=== PATIENT | female | born 1965 | race Two or more races ===

== ENCOUNTER 2022-07-03 16:03 | Emergency (ER) | payer SELFPAY ==
[2022-07-03] MEDS ORDERED: ONDANSETRON ODT 4 MG TABLET TL STA (16:32)
[2022-07-03] MEDS ORDERED: HYDROmorphone 1 MG/ML CARPUJECT IM STA (16:32)
--- NOTE | 2022-07-03 16:39 | ED Physician Documentation ---
PD HPI BACK PAIN - Stated complaint Stated Complaint: LOWER BACK PAIN - Chief complaint Chief Complaint: Back Pain - History obtained from History obtained from: Patient, Family - History of Present Illness Timing - onset: How many months ago (1) Timing - duration: Months (1) Timing - details: Gradual onset, Still present Location: Lower, Right Quality: Pain, Spasm, Sharp, Similar to prior episodes Associated symptoms: No: Fever, Weakness, Numbness, Incontinent of urine, Unable to urinate, Hematuria, Incontinent of stool Improves with: Rest, Position, Meds Worsened by: Movement Contributing factors: Other (fell one year ago) Similar symptoms before: Diagnosis (sciatica) Recently seen: Not recently seen - Additional information Additional information: 57-year-old female fell 1 year ago and injured her lower back. She was seen by physician in [place] and she did have plain films done without findings. She has been treated for sciatica. She has been treating this with an injectable dexamethasone Celexa Nguyen and Toradol as well as Lyrica. She brings her medications she has with her from [place]. She is here today as she has lost control of her pain and her medications she has been using are no longer effective. She is begging for some relief. She has been told that she will need MRI for further work-up and treatment. Review of Systems Constitutional: denies: Fever Eyes: denies: Decreased vision Ears: denies: Ear pain Nose: denies: Congestion Throat: denies: Sore throat Cardiac: denies: Chest pain / pressure, Palpitations Respiratory: denies: Dyspnea, Cough GI: denies: Abdominal Pain, Nausea, Vomiting, Constipation, Diarrhea : denies: Dysuria, Frequency Skin: denies: Rash Musculoskeletal: reports: Back pain, Extremity pain. denies: Neck pain Neurologic: denies: Generalized weakness, Focal weakness, Numbness PD PAST MEDICAL HISTORY - Present Medications Home Medications: Ambulatory Orders Medication Instructions Recorded Confirmed Celecoxib [Celebrex] 200 mg PO DAILY 07/03/22 07/03/22 Cyclobenzaprine [Flexeril] 10 mg PO TID PRN #20 tablet 07/03/22 HYDROcod/ACETAM 5/325 [[place] 5/325] 1 - 2 tablet PO Q6H PRN #14 tablet 07/03/22 Pregabalin [Lyrica] 50 mg PO ONCE 07/03/22 07/03/22 - Allergies Allergies/Adverse Reactions: Allergies Allergy/AdvReac Type Severity Reaction Status Date / Time No Known Drug Allergies Allergy Verified 07/03/22 16:18 PD ED PE NORMAL - Vitals Vital signs reviewed: Yes (hypertensive ) - General General: Alert and oriented X 3, Well developed/nourished - HEENT HEENT: Atraumatic, PERRL, EOMI - Neck Neck: Supple, no meningeal sign, No bony TTP - Respiratory Respiratory: No respiratory distress - Back Back: No CVA TTP, No spinal TTP, Other (mild right paraspinous muscle tenderness) - Derm Derm: Normal color, Warm and dry, No rash - Extremities Extremities: No deformity, No edema - Neuro Neuro: Alert and oriented X 3, 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, No motor deficit, No sensory deficit, Normal speech Eye Opening: Spontaneous Motor: Obeys Commands Verbal: Oriented GCS Score: 15 - Psych Psych: Normal mood, Normal affect Results - Vitals Vitals: Vital Signs - 24 hr 07/03/22 07/03/22 16:12 18:13 Temperature 36.2 C L Heart Rate 88 75 Respiratory 16 16 Rate Blood Pressure 132/77 H 125/76 O2 Saturation 99 96 Oxygen O2 Source Room air PD MEDICAL DECISION MAKING - ED course Complexity details: re-evaluated patient, considered differential, d/w patient, d/w family ED course: This 57-year-old female has a history of sciatica she has been treating this for more than a month she has had some luck with the use of dexamethasone and Celexa as well as Lyrica. She now feels her medications are completely i neffective and she has lost control of her pain. Here in the emergency department she is administered a milligram of Dilaudid IM and Zofran. She has marked improvement in her pain. She has now failed conservative measures with nonsteroidal and we will provide some temporary pain relief for the patient. I have indicated the patient that she should invest her time in physical therapy as this is the modality will likely give her the most lasting relief. I have offered to give the patient a referral to a primary care doctor. Departure - Departure Disposition: 01 Home, Self Care Clinical Impression: Sciatica Qualifiers: Laterality: right Qualified Code(s): M54.31 - Sciatica, right side Condition: Stable Instructions: ED Sciatica Follow-Up: Emily Moon ARNP [Provider Admit Priv/Credential] - Prescriptions: Cyclobenzaprine [Flexeril] 10 mg PO TID PRN #20 tablet PRN Reason: Spasms HYDROcod/ACETAM 5/325 [[place] 5/325] 1 - 2 tablet PO Q6H PRN #14 tablet PRN Reason: Pain Comments: Shazia, Today it looks like you have lost control of your pain. When this happens we provide a small amount of a strong narcotic pain reliever and I have escribed medications to the [facility] in [place]. The expectation is that you will have improvement in your pain and once the pain is controlled it is easier to continue to control it and you may be able to get good relief with the medications you already have. The narcotic will make you constipated and you cannot drive while you are taking either of these medications. The narcotic can be habit forming and we only provide this in small amounts. The muscle relaxant will make you tired and not move around as much and I recommend you take it at night. Physical therapy with stretching and core muscle building will eventually give you lasting improvement. Seek care with the primary care doctor recommended for initiation of physical therapy. Discharge Date/Time: 07/03/22 18:14
[2022-07-03 18:14] VITALS: BP 125/76
== END 2022-07-03 18:14 | disposition home or self-care (01) ==
LOC: ED 16:03
DX: M54.31 Sciatica, right side (principal)
CPT/HCPCS: 96372; 99283; 99284; J1170; Q0162

== ENCOUNTER 2022-07-06 14:56 | Outpatient (CLI) | payer SELFPAY | END 2022-07-06 14:57 | disposition critical access hospital (66) | LOC: EMS 14:56 | DX: T40.2X2A Poisoning by other opioids, intentional self-harm, initial encounter (principal); T42.6X2A Poisoning by other antiepileptic and sedative-hypnotic drugs, intentional self-harm, initial encounter; T48.1X2A Poisoning by skeletal muscle relaxants [neuromuscular blocking agents], intentional self-harm, initial encounter; R41.82 Altered mental status, unspecified | CPT/HCPCS: A0425; A0427 ==

== ENCOUNTER 2022-07-06 15:41 | Observation (INO) | payer SELFPAY ==
[2022-07-06] MEDS ORDERED: SODIUM CHLORIDE 0.9% 1,000 ML IV STA (15:49)
--- NOTE | 2022-07-06 15:51 | ED Physician Documentation ---
PD HPI OVERDOSE - Stated complaint Stated Complaint: OD - History obtained from History obtained from: Patient, EMS - Additional information Additional information: 67-year-old woman brought in by ambulance for polydrug overdose. Between 6 and 8 AM she took reportedly a total of 20 x 10 mg Flexeril, 28 x 50 mg Lyrica and 14 x 5 mg hydrocodone's. This was in a suicide attempt because she owes money. History is limited because she is somnolent. She was found on the ground, there was a possible fall but EMS thinks if she did follow-up was probably only a few inches. She is in a c-collar. Review of Systems Unable to obtain: Confused PD PAST MEDICAL HISTORY - Past Medical History Musculoskeletal: Chronic back pain - Present Medications Home Medications: Ambulatory Orders Medication Instructions Recorded Confirmed Celecoxib [Celebrex] 200 mg PO DAILY 07/03/22 07/03/22 Cyclobenzaprine [Flexeril] 10 mg PO TID PRN #20 tablet 07/03/22 HYDROcod/ACETAM 5/325 [[place] 5/325] 1 - 2 tablet PO Q6H PRN #14 tablet 07/03/22 Pregabalin [Lyrica] 50 mg PO ONCE 07/03/22 07/03/22 - Allergies Allergies/Adverse Reactions: Allergies Allergy/AdvReac Type Severity Reaction Status Date / Time No Known Drug Allergies Allergy Verified 07/03/22 16:18 - Social History Does the pt smoke?: No Smoking Status: Never smoker Does the pt have substance abuse?: No - Immunizations Immunizations are current?: Yes - POLST Patient has POLST: No PD ED PE NORMAL - Vitals Vital signs reviewed: Yes - General General: Other (She is somnolent but awakens to voice, she can answer simple questions and follow simple commands.) - HEENT HEENT: Other ([place] sluggish pupils; Dry mucous membranes) - Neck Neck: No bony TTP, Other (Maintained in a c-collar pending imaging given potential trauma) - Cardiac Cardiac: Other (Tachycardic and regular without murmur) - Respiratory Respiratory: No respiratory distress, Clear bilaterally - Abdomen Abdomen: Normal bowel sounds, Soft, Non tender - Back Back: No CVA TTP, No spinal TTP - Derm Derm: Normal color, Warm and dry, Other (Very dry skin) - Neuro Eye Opening: To Voice Motor: Obeys Commands Verbal: Confused GCS Score: 13 Results - Vitals Vitals: Vital Signs - 24 hr 07/06/22 07/06/22 07/06/22 15:48 16:24 16:30 Temperature 37.2 C Heart Rate 114 H 125 H Respiratory 19 20 Rate Blood Pressure 117/72 154/96 H O2 Saturation 100 100 100 07/06/22 07/06/22 17:00 17:30 Temperature Heart Rate 126 H 125 H Respiratory 20 16 Rate Blood Pressure 140/120 H 105/82 H O2 Saturation 100 99 Oxygen O2 Source Room air - EKG (time done) 1610 Rate: Rate (enter#) (115) Rhythm: Sinus tachycardia, RICARDO [place]: LAD Intervals: Normal SC. No: Prolonged QT QRS: Normal Ischemia: Normal ST segments - Labs Labs: Laboratory Tests 07/06/22 07/06/22 07/06/22 15:51 16:00 16:04 WBC 15.4 H RBC 4.57 Hgb 14.1 Hct 42.7 MCV 93.4 MCH 30.9 MCHC 33.0 RDW 12.0 Plt Count 205 MPV 11.2 H Neut # (Auto) 13.9 H Lymph # (Auto) 0.6 L Tama # (Auto) 0.8 Eos # (Auto) 0.0 Baso # (Auto) 0.0 Absolute Nucleated RBC 0.00 Nucleated RBC % 0.0 Sodium Potassium Chloride Carbon Dioxide Anion Gap BUN Creatinine Estimated GFR (MDRD) Glucose Calcium Total Bilirubin AST ALT Alkaline Phosphatase Total Protein Albumin Globulin Albumin/Globulin Ratio Lipase TSH Free T4 Free T3 pg/mL Urine Color YELLOW Urine Clarity CLEAR Urine pH 5.5 Ur Specific Weir 1.020 Urine Protein NEGATIVE Urine Glucose (UA) NEGATIVE Urine Ketones 15 H Urine Occult Blood NEGATIVE Urine Nitrite NEGATIVE Urine Bilirubin NEGATIVE Urine Urobilinogen 0.2 (NORMAL) Ur Leukocyte Esterase NEGATIVE Ur Microscopic Review NOT INDICATED Urine Culture Comments NOT INDICATED Nasal Adenovirus (PCR) NOT DETECTED Nasal B. parapertussis DNA (PCR) NOT DETECTED Nasal Coronavir 229E PCR NOT DETECTED Nasal Coronavir HKU1 PCR NOT DETECTED Nasal Coronavir NL63 PCR NOT DETECTED Nasal Coronavir OC43 PCR NOT DETECTED Nasal Enterovir/Rhinovir PCR NOT DETECTED Nasal Influenza B PCR NOT DETECTED Nasal Influenza A PCR NOT DETECTED Nasal Parainfluen 1 PCR NOT DETECTED Nasal Parainfluen 2 PCR NOT DETECTED Nasal Parainfluen 3 PCR NOT DETECTED Nasal Parainfluen 4 PCR NOT DETECTED Nasal RSV (PCR) NOT DETECTED Nasal B.pertussis DNA PCR NOT DETECTED Nasal C.pneumoniae (PCR) NOT DETECTED Emigdio Human Metapneumo PCR NOT DETECTED Nasal M.pneumoniae (PCR) NOT DETECTED Nasal SARS-CoV-2 (PCR) NOT DETECTED Salicylates Urine Opiates Screen POSITIVE H Ur Oxycodone Screen NEGATIVE Urine Methadone Screen NEGATIVE Ur Propoxyphene Screen NEGATIVE Acetaminophen Ur Barbiturates Screen NEGATIVE Ur Tricyclics Screen POSITIVE H Ur Phencyclidine Scrn NEGATIVE Ur Amphetamine Screen NEGATIVE U Methamphetamines Scrn NEGATIVE U Benzodiazepines Scrn NEGATIVE Urine Cocaine Screen NEGATIVE U Cannabinoids Screen NEGATIVE Ethyl Alcohol 07/06/22 07/06/22 07/06/22 16:04 16:04 16:04 WBC RBC Hgb Hct MCV MCH MCHC RDW Plt Count MPV Neut # (Auto) Lymph # (Auto) Tama # (Auto) Eos # (Auto) Baso # (Auto) Absolute Nucleated RBC Nucleated RBC % Sodium 138 Potassium 4.1 Chloride 101 Carbon Dioxide 24 Anion Gap 13.0 BUN 19 Creatinine 0.8 Estimated GFR (MDRD) 74 L Glucose 86 Calcium 9.7 Total Bilirubin 1.0 AST 74 H ALT 31 Alkaline Phosphatase 80 Total Protein 7.8 Albumin 4.3 Globulin 3.5 Albumin/Globulin Ratio 1.2 Lipase 45 TSH < 0.08 L Free T4 1.77 H Free T3 pg/mL 3.58 Urine Color Urine Clarity Urine pH Ur Specific Weir Urine Protein Urine Glucose (UA) Urine Ketones Urine Occult Blood Urine Nitrite Urine Bilirubin Urine Urobilinogen Ur Leukocyte Esterase Ur Microscopic Review Urine Culture Comments Nasal Adenovirus (PCR) Nasal B. parapertussis DNA (PCR) Nasal Coronavir 229E PCR Nasal Coronavir HKU1 PCR Nasal Coronavir NL63 PCR Nasal Coronavir OC43 PCR Nasal Enterovir/Rhinovir PCR Nasal Influenza B PCR Nasal Influenza A PCR Nasal Parainfluen 1 PCR Nasal Parainfluen 2 PCR Nasal Parainfluen 3 PCR Nasal Parainfluen 4 PCR Nasal RSV (PCR) Nasal B.pertussis DNA PCR Nasal C.pneumoniae (PCR) Emigdio Human Metapneumo PCR Nasal M.pneumoniae (PCR) Nasal SARS-CoV-2 (PCR) Salicylates < 6.0 Urine Opiates Screen Ur Oxycodone Screen Urine Methadone Screen Ur Propoxyphene Screen Acetaminophen < 10 L Ur Barbiturates Screen Ur Tricyclics Screen Ur Phencyclidine Scrn Ur Amphetamine Screen U Methamphetamines Scrn U Benzodiazepines Scrn Urine Cocaine Screen U Cannabinoids Screen Ethyl Alcohol < 5.0 - Rads (name of study) CT of the head and cervical spine were negative. C-collar removed at 5:50 PM. Radiology: EMP read contemporaneously PD MEDICAL DECISION MAKING - ED course ED course: 57-year-old woman presents after a polydrug overdose, this included Tylenol, hydrocodone, Flexeril, and Lyrica. She presents somnolent, tachycardic, in a c- collar given potential trauma albeit per the above the trauma would have been mild. Poison control recommends treatment with N-acetylcysteine given the elevation in her AST despite a negative serum Tylenol level and this is started and I spoke with Dr. Brownlee for obs in the ICU at approximately 5:30 PM. - Critical Care Time(min): 35 Time Includes: Direct patient care, Review records, Reassess patient, Document care, Coordinate care, Medical consult, Family consult for tx dec (Daughter at bedside at times and updated with progress and plan.) Data interpretation: Labs, Pulse ox Procedures included in critical care time: Peripheral IV Procedures excluded from critical care time: EKG Departure - Departure Disposition: ED Place in Observation Clinical Impression: Drug overdose, Elevated LFTs, Delirium Condition: Serious
[2022-07-06 15:58] LABS: MUDS CUTOFF CONCENTRATIONS CUTOFF CONC BELOW:
[2022-07-06 16:00] LABS: BILIRUBIN,URINE NEGATIVE (NEGATIVE); GLUCOSE, URINE (UA) NEGATIVE (NEGATIVE); KETONES,URINE (UA) 15 mg/dL (NEGATIVE); LEUKOCYTE ESTERASE, URINE NEGATIVE (NEGATIVE); NITRITE,URINE NEGATIVE (NEGATIVE); OCCULT BLOOD,URINE NEGATIVE (NEGATIVE); PH,URINE 5.5 PH (5.0-7.5); PROTEIN,URINE NEGATIVE (NEGATIVE); UROBILINOGEN,URINE 0.2 (NORMAL) E.U./dL (NORMAL)
[2022-07-06 16:02] LABS: CLARITY,URINE CLEAR (CLEAR)
[2022-07-06 16:07] LABS: BASOPHILS % (AUTO) 0.1 %; HCT - HEMATOCRIT 42.7 % (37.0-47.0); HGB - HEMOGLOBIN 14.1 g/dL (12.0-16.0); LYMPHOCYTES # (AUTO) 0.6 10^3/uL (1.5-3.5); LYMPHOCYTES % (AUTO) 3.6 %; MEAN CORPUSCULAR HEMOGLOBIN 30.9 pg (27.0-31.0); MEAN CORPUSCULAR VOLUME 93.4 fL (81.0-99.0); MEAN PLATELET VOLUME 11.2 fL (7.9-10.8); MONOCYTES # (AUTO) 0.8 10^3/uL (0.0-1.0); MONOCYTES % (AUTO) 5.3 %; NEUTROPHILS # (AUTO) 13.9 10^3/uL (1.5-6.6); NEUTROPHILS % (AUTO) 90.7 %; PLT - PLATELET COUNT 205 10^3/uL (130-450); RED BLOOD COUNT 4.57 10^6/uL (4.20-5.40); WHITE BLOOD COUNT 15.4 x10^3/uL (4.8-10.8)
[2022-07-06 16:14] LABS: AMPHETAMINE SCREEN,URINE NEGATIVE (NEGATIVE); BARBITURATE SCREEN,UR NEGATIVE (NEGATIVE); BENZODIAZEPINES SCREEN, URINE NEGATIVE (NEGATIVE); COCAINE SCREEN URINE NEGATIVE (NEGATIVE); METHADONE SCREEN, URINE NEGATIVE (NEGATIVE); METHAMPHETAMINES SCREEN, URINE NEGATIVE (NEGATIVE); OPIATE SCREEN, URINE POSITIVE (NEGATIVE); OXYCODONE SCREEN, URINE NEGATIVE (NEGATIVE); PROPOXYPHENE SCREEN, URINE NEGATIVE (NEGATIVE); THC CANNABINOID SCREEN, URINE NEGATIVE (NEGATIVE); TRICYCLIC ANTIDEPRESSANT,URINE POSITIVE (NEGATIVE)
[2022-07-06 16:22] LABS: ACETAMINOPHEN < 10 ug/mL (10-30); ALBUMIN 4.3 g/dL (3.2-5.5); ALBUMIN/GLOBULIN RATIO 1.2 (1.0-2.2); ALKALINE PHOSPHATASE 80 IU/L (42-121); ALT ALANINE AMINOTRANSFERASE 31 IU/L (10-60); AST ASPARTATE AMINOTRANSFERASE 74 IU/L (10-42); BUN - BLOOD UREA NITROGEN 19 mg/dL (6-20); CALCIUM 9.7 mg/dL (8.5-10.3); CARBON DIOXIDE - CO2 24 mmol/L (21-32); CHLORIDE 101 mmol/L (101-111); CREATININE 0.8 mg/dL (0.4-1.0); ETOH - ETHANOL < 5.0 mg/dL; GFR - MDRD 74 (>89); GLUCOSE 86 mg/dL (70-100); LIPASE 45 U/L (22-51); POTASSIUM 4.1 mmol/L (3.5-5.0); SALICYLATE < 6.0 mg/dL; SODIUM 138 mmol/L (135-145); TOTAL PROTEIN 7.8 g/dL (6.7-8.2)
[2022-07-06 17:23] LABS: B. PARAPERTUSSIS- RESP PCR PAN NOT DETECTED; B. PERTUSSIS- RESP PCR PANEL NOT DETECTED; C. PNEUMONIAE- RESP PCR PANEL NOT DETECTED; CORONAVIRUS 229E-RESP PCR NOT DETECTED; CORONAVIRUS HKU1-RESP PCR NOT DETECTED; CORONAVIRUS NL63-RESP PCR NOT DETECTED; CORONAVIRUS OC43-RESP PCR NOT DETECTED; HUMAN METAPNEUMOVIRUS NOT DETECTED; INFLUENZA A- RESP PCR PANEL NOT DETECTED; INFLUENZA B - RESP PCR PANEL NOT DETECTED; M. PNEUMONIAE- RESP PCR PANEL NOT DETECTED; PARAINFLUENZA VIRUS 1 NOT DETECTED; PARAINFLUENZA VIRUS 2 NOT DETECTED; PARAINFLUENZA VIRUS 3 NOT DETECTED; PARAINFLUENZA VIRUS 4 NOT DETECTED; RHINOVIRUS/ENTEROVIRUS NOT DETECTED; RSV- RESP PCR PANEL NOT DETECTED; SARS-CoV-2 -RESP PCR PANEL NOT DETECTED
[2022-07-06] MEDS ORDERED: ACETYLCYSTEINE 5,000 MG in DEXTROSE 5% 1,000 ML IV ONE (17:25)
[2022-07-06] MEDS ORDERED: ACETYLCYSTEINE IV ONE (17:25)
[2022-07-06] MEDS ORDERED: DEXTROSE 5% IV ONE (17:25)
[2022-07-06] MEDS ORDERED: DEXTROSE 5% IV STA (17:25)
[2022-07-06] MEDS ORDERED: ACETYLCYSTEINE IV STA (17:25)
--- NOTE | 2022-07-06 17:40 | CT Report ---
PROCEDURE: HEAD WO INDICATIONS: poss head inj, ams TECHNIQUE: Noncontrast 4.5 mm thick angled axial sections acquired from the foramen magnum to the vertex. For r adiation dose reduction, the following was used: automated exposure control, adjustment of mA and/or kV according to patient size. COMPARISON: None. FINDINGS: Image quality: Decreased due to unavoidable patient motion.. CSF spaces: Basal cisterns are patent. No extra-axial fluid collections. Ventricles are normal in size and shape. Brain: No midline shift. No intracranial masses or hemorrhage. Mccabe-white matter interface is norm al. Skull and face: Calvarium and visualized facial bones are intact, without suspicious lesions. Sinuses: Visualized sinuses and mastoids are clear. IMPRESSION: 1. Given limitations of motion on some scans, no CT evidence of obvious acute intracranial process. Reviewed by: Ale Stewart MD on 07/06/2022 5:39 PM PDT Approved by: Ale Stewart MD on 07/06/2022 5:39 PM PDT Station ID: [id number]
[2022-07-06 17:41] LABS: FREE T3 3.58 pg/mL (2.5-3.9); FREE T4 (FREE THYROXINE) 1.77 ng/dL (0.58-1.64)
--- NOTE | 2022-07-06 17:44 | CT Report ---
PROCEDURE: CERVICAL SPINE WO INDICATIONS: poss head inj, ams TECHNIQUE: Noncontrast 3 mm thick sections acquired from the skull base to the T4 level. Sagittal and coronal r eformats were then constructed. For radiation dose reduction, the following was used: automated exp osure control, adjustment of mA and/or kV according to patient size. COMPARISON: None. FINDINGS: Image quality: Excellent. Bones: No fractures or dislocations. No occipital condylar fracture. Craniocervical junction is int act. There are degenerative spurs at the atlantodental interval. Lateral masses of C1 are normally al igned on C2. There are mild endplate spurs at multiple levels, particularly C3-4, C4-5, and C5-6. Moderate right-s ided bony foraminal narrowing at these levels. Visualized superior ribs are intact. Soft tissues: Prevertebral soft tissues are normal in thickness. No paravertebral hematomas. No ap ical pneumothoraces. IMPRESSION: 1. No CT evidence of acute cervical spine trauma. Reviewed by: Ale Stewart MD on 07/06/2022 5:42 PM PDT Approved by: Ale Stewart MD on 07/06/2022 5:42 PM PDT Station ID: [id number]
--- NOTE | 2022-07-06 18:18 | HISTORY & PHYSICAL EXAMINATION ---
Chief Complaint - Chief Complaint Chief Complaint: Polydrug OD History of Present Illness - Admitted From Admitted From:: ED - History Obtained From History obtained from: ED provider - History of Present Illness HPI Comment/Other: This is obtained from the ED provider, since pt is somnolent: This is a 57-year-old woman who presents after a polydrug overdose, this included Tylenol, hydrocodone, Flexeril, and Lyrica. She presents somnolent, tachycardic, in a c-collar given potential trauma albeit the trauma would have been mild, as she was found lying on the ground near a mattress which was on the floor. Imaging of head and C-spine have ruled out fractures. Poison control recommends treatment with N-acetylcysteine given the elevation in her AST despite a negative serum Tylenol level and this is started. Toxicology screen is positive for tricyclics and opiates. She is being placed in the ICU. History - Past Medical History Musculoskeletal: reports: Chronic back pain - Family & Social History Family History Comment/Other: Not obtainable due to her somnolence Social History Notes: Family history not obtainable due to her somnolence. Social history details not known. - POLST Patient has POLST: No Meds/Allgy - Home Medications Home Medications: Ambulatory Orders Medication Instructions Recorded Confirmed Celecoxib [Celebrex] 200 mg PO DAILY 07/03/22 07/03/22 Cyclobenzaprine [Flexeril] 10 mg PO TID PRN #20 tablet 07/03/22 HYDROcod/ACETAM 5/325 [[place] 5/325] 1 - 2 tablet PO Q6H PRN #14 tablet 07/03/22 Pregabalin [Lyrica] 50 mg PO ONCE 07/03/22 07/03/22 - Allergies Allergies/Adverse Reactions: Allergies Allergy/AdvReac Type Severity Reaction Status Date / Time No Known Drug Allergies Allergy Verified 07/03/22 16:18 Review of Systems - All Other Systems All Other Systems: reports: Other (Unable to obtain review of systems due to her somnolent mental status.) Exam - Vital Signs Reviewed Vital Signs: Yes Vital Signs: Vital Signs x48h Temp Pulse Resp BP Pulse Ox 07/06/22 18:00 36.7 C 131 H 12 123/87 H 100 07/06/22 17:30 125 H 16 105/82 H 99 07/06/22 17:00 126 H 20 140/120 H 100 07/06/22 16:30 100 07/06/22 16:24 125 H 20 154/96 H 100 07/06/22 15:48 37.2 C 114 H 19 117/72 100 - Physical Exam General Appearance: positive: Other (Somnolent, has spontaneous movements of all 4 extremities, suddenly starts to speak in a whisper in [place] despite her eyes being closed.) Eyes Bilateral: positive: No lid inflammation, Other (eyes closed. Pupils are mid and sluggish) ENT: positive: Dry mucous membranes Neck: positive: Nml inspection, No JVD Respiratory: positive: No respiratory distress, Breath sounds nml Cardiovascular: positive: Regular rate & rhythm, No murmur, Tachycardia Abdomen: positive: Nml bowel sounds, No distention Skin: positive: Warm, Dry Extremities: positive: No pedal edema Neurologic/Psychiatric: positive: Other (Somnolent, spontaneous movement of all 4 extremities noted, eyes are closed, occasionally whispering speech in sentencaes (is speaking in Grenadian)) Conclusion/Plan - Problem List (1) Drug overdose Conclusion/Plan: According to the ED provider, this was an intentional suicide attempt. Will place her in the ICU. When she is awakening will place on one-to-one observation. Will give supportive care (2) Suicide attempt by drug ingestion Conclusion/Plan: As above. 1:1 sitter will be ordered She will need a telepsych evaluation when awake (3) Elevated LFTs Conclusion/Plan: Since Tylenol is one of the compounds that she apparently took, Poison control has recommended that we use acetylcysteine scheduled dosing. Will follow [facility] daily - Lab Results Fish Bones: 07/06/22 16:04 07/06/22 16:04 - Diagnostic Imaging Results Diagnostic Imaging Results: positive: Final report reviewed
[2022-07-06] MEDS ORDERED: ONDANSETRON 4 MG/2 ML VIAL IVP PRN (18:23)
[2022-07-06] MEDS ORDERED: SODIUM CHLORIDE FLUSH 0.9% 10 ML SYRINGE IVP PRN (18:23)
[2022-07-06] MEDS: D5NS W/20 MEQ KCL 1,000 ML IV SCH (20:08)
[2022-07-07] MEDS: SODIUM CHLORIDE FLUSH 0.9% 10 ML SYRINGE IVP SCH ×4 (00:08→21:57)
[2022-07-07 05:17] LABS: BASOPHILS % (AUTO) 0.3 %; EOSINOPHILS # (AUTO) 0.1 10^3/uL (0.0-0.7); EOSINOPHILS % (AUTO) 1.2 %; HGB - HEMOGLOBIN 12.5 g/dL (12.0-16.0); LYMPHOCYTES # (AUTO) 1.3 10^3/uL (1.5-3.5); LYMPHOCYTES % (AUTO) 12.7 %; MEAN CORPUSCULAR HEMOGLOBIN 30.8 pg (27.0-31.0); MEAN CORPUSCULAR HGB CONC 33.8 g/dL (32.0-36.0); MEAN CORPUSCULAR VOLUME 91.1 fL (81.0-99.0); MEAN PLATELET VOLUME 11.1 fL (7.9-10.8); MONOCYTES # (AUTO) 1.1 10^3/uL (0.0-1.0); MONOCYTES % (AUTO) 10.3 %; NEUTROPHILS # (AUTO) 7.9 10^3/uL (1.5-6.6); NEUTROPHILS % (AUTO) 75.2 %; PLT - PLATELET COUNT 176 10^3/uL (130-450); RED BLOOD COUNT 4.06 10^6/uL (4.20-5.40); RED CELL DISTRIBUTION WIDTH 12.1 % (12.0-15.0); WHITE BLOOD COUNT 10.5 x10^3/uL (4.8-10.8)
[2022-07-07 05:26] LABS: CALCIUM, IONIZED 1.2 mmol/L (1.15-1.33); VBG PH 7.455 (7.31-7.41)
[2022-07-07 05:30] LABS: BILIRUBIN,TOTAL 0.7 mg/dL (0.2-1.0); CALCIUM 9.1 mg/dL (8.5-10.3); CREATININE 0.5 mg/dL (0.4-1.0); MAGNESIUM 1.9 mg/dL (1.7-2.8); PHOSPHORUS 2.2 mg/dL (2.5-4.6); POTASSIUM 3.4 mmol/L (3.5-5.0); TOTAL PROTEIN 6.1 g/dL (6.7-8.2)
[2022-07-07] MEDS: D5NS W/20 MEQ KCL 1,000 ML IV SCH ×2 (06:20→16:20)
[2022-07-07] MEDS: PANTOPRAZOLE 40 MG VIAL IVP SCH (06:20)
[2022-07-07] MEDS: POTASSIUM CHLORIDE 20 MEQ TABLET PO SCH ×2 (08:15→10:12)
[2022-07-07] MEDS: NEUTRA-PHOS 250 MG TABLET PO SCH ×2 (08:15→10:12)
[2022-07-07 13:17] LABS: INR 1.3 (0.8-1.2)
--- NOTE | 2022-07-07 17:19 | PROVIDER PROGRESS NOTE ---
Subjective - Prog Note Date Prog Note Date: 07/07/22 Prog Note Time: 17:24 - Subjective Subjective: I have seen the patient twice from this morning to this afternoon. She has become increasingly more alert. Has eaten her meals. Denies any pain. Nausea. No shortness of breath. Telemetry has been without any arrhythmias. She is very, very worried about the cost of all of her hospitalizations. Her worry is what led her to her intentional drug overdose Current Medications - Current Medications Current Medications: Active Medications Potassium Chloride/Dextrose/Sod Cl (D5ns W/20 Meq Kcl) 1,000 mls @ 100 mls/hr IV .Q10H [facility] Last Admin: 07/07/22 16:20 Dose: 100 mls/hr Ondansetron HCl (Ondansetron 4 Mg/2 Ml Vial) 4 mg IVP Q6HR PRN PRN Reason: Nausea / Vomiting Pantoprazole Sodium (Pantoprazole 40 Mg Vial) 40 mg IVP QDAC [facility] Last Admin: 07/07/22 06:20 Dose: 40 mg Sodium Chloride (Sodium Chloride Flush 0.9% 10 Ml Syringe) 10 ml IVP 0100 ,0900,1700 [facility] Last Admin: 07/07/22 16:21 Dose: 10 ml Sodium Chloride (Sodium Chloride Flush 0.9% 10 Ml Syringe) 10 ml IVP PRN PRN PRN Reason: NEEDED PER PROVIDER ORDERS Celecoxib [Celebrex] 200 mg PO DAILY 07/03/22 Objective - Vital Signs/Intake & Output Reviewed Vital Signs: Yes Vital Signs: Vital Signs x48h Temp Pulse Resp BP Pulse Ox 07/07/22 17:00 111 H 18 122/93 H 100 07/07/22 16:00 36.6 C 94 18 116/74 99 07/07/22 15:00 100 15 116/54 L 99 07/07/22 14:00 100 15 117/67 98 07/07/22 13:00 100 15 108/71 97 07/07/22 12:00 37.0 C 97 17 119/89 H 99 07/07/22 10:59 89 13 96/84 H 100 07/07/22 10:00 94 15 110/79 97 Intake & Output: Intake & Output 07/04/22 07/05/22 07/06/22 07/07/22 23:59 23:59 23:59 23:59 Intake Total 1237.5 3872.5 Output Total 870 1685 Balance 367.5 2187.5 - Objective General Appearance: positive: Alert Eyes Bilateral: positive: PERRL, EOMI ENT: positive: Pharynx nml Neck: positive: No JVD. negative: Stiff neck Respiratory: positive: No respiratory distress. negative: Wheezes, Rales, Rhonchi Cardiovascular: positive: Regular rate & rhythm. negative: Gallop/S4, Friction rub Abdomen: positive: Non-tender, No organomegaly, Nml bowel sounds, No distention Skin: positive: Warm, Dry Extremities: positive: Full ROM, No pedal edema Neurologic/Psychiatric: positive: Oriented x3, CN's nml (2-12), Motor nml - Lab Results Fish Bones: 07/07/22 05:08 07/07/22 05:08 Other Labs: Lab Results x24hrs 07/07/22 07/07/22 07/07/22 Range/Units 13:00 05:08 05:08 WBC (4.8-10.8) x10^3/uL RBC (4.20-5.40) 10^6/uL Hgb (12.0-16.0) g/dL Hct (37.0-47.0) % MCV (81.0-99.0) fL MCH (27.0-31.0) pg MCHC (32.0-36.0) g/dL RDW (12.0-15.0) % Plt Count (130-450) 10^3/uL MPV (7.9-10.8) fL Neut # (Auto) (1.5-6.6) 10^3/uL Lymph # (Auto) (1.5-3.5) 10^3/uL [place] # (Auto) (0.0-1.0) 10^3/uL Eos # (Auto) (0.0-0.7) 10^3/uL Baso # (Auto) (0.0-0.1) 10^3/uL Absolute Nucleated RBC x10^3/uL Nucleated RBC % /100WBC PT 14.0 H (9.9-12.6) secs INR 1.3 H (0.8-1.2) VBG pH 7.455 H (7.31-7.41) Ionized Calcium 1.20 (1.15-1.33) mmol/L Sodium 137 (135-145) mmol/L Potassium 3.4 L (3.5-5.0) mmol/L Chloride 103 (101-111) mmol/L Carbon Dioxide 26 (21-32) mmol/L Anion Gap 8.0 (6-13) BUN 13 (6-20) mg/dL Creatinine 0.5 (0.4-1.0) mg/dL Estimated GFR (MDRD) 128 (>89) Glucose 145 H (70-100) mg/dL Calcium 9.1 (8.5-10.3) mg/dL Phosphorus 2.2 L (2.5-4.6) mg/dL Magnesium 1.9 (1.7-2.8) mg/dL Total Bilirubin 0.7 (0.2-1.0) mg/dL AST 42 (10-42) IU/L ALT 25 (10-60) IU/L Alkaline Phosphatase 59 (42-121) IU/L Total Protein 6.1 L (6.7-8.2) g/dL Albumin 3.0 L (3.2-5.5) g/dL Globulin 3.1 (2.1-4.2) g/dL Albumin/Globulin Ratio 1.0 (1.0-2.2) Free T4 (0.58-1.64) ng/dL Free T3 pg/mL (2.5-3.9) pg/mL Nasal Adenovirus (PCR) Nasal B. parapertussis DNA (PCR) Nasal Coronavir 229E PCR Nasal Coronavir HKU1 PCR Nasal Coronavir NL63 PCR Nasal Coronavir OC43 PCR Nasal Enterovir/Rhinovir PCR Nasal Influenza B PCR Nasal Influenza A PCR Nasal Parainfluen 1 PCR Nasal Parainfluen 2 PCR Nasal Parainfluen 3 PCR Nasal Parainfluen 4 PCR Nasal RSV (PCR) Nasal Screen MRSA (PCR) (NEGATIVE) Nasal B.pertussis DNA PCR Nasal C.pneumoniae (PCR) Emigdio Human Metapneumo PCR Nasal M.pneumoniae (PCR) Nasal SARS-CoV-2 (PCR) 07/07/22 07/06/22 07/06/22 Range/Units 05:08 18:35 16:04 WBC 10.5 (4.8-10.8) x10^3/uL RBC 4.06 L (4.20-5.40) 10^6/uL Hgb 12.5 (12.0-16.0) g/dL Hct 37.0 (37.0-47.0) % MCV 91.1 (81.0-99.0) fL MCH 30.8 (27.0-31.0) pg MCHC 33.8 (32.0-36.0) g/dL RDW 12.1 (12.0-15.0) % Plt Count 176 (130-450) 10^3/uL MPV 11.1 H (7.9-10.8) fL Neut # (Auto) 7.9 H (1.5-6.6) 10^3/uL Lymph # (Auto) 1.3 L (1.5-3.5) 10^3/uL [place] # (Auto) 1.1 H (0.0-1.0) 10^3/uL Eos # (Auto) 0.1 (0.0-0.7) 10^3/uL Baso # (Auto) 0.0 (0.0-0.1) 10^3/uL Absolute Nucleated RBC 0.00 x10^3/uL Nucleated RBC % 0.0 /100WBC PT (9.9-12.6) secs INR (0.8-1.2) VBG pH (7.31-7.41) Ionized Calcium (1.15-1.33) mmol/L Sodium (135-145) mmol/L Potassium (3.5-5.0) mmol/L Chloride (101-111) mmol/L Carbon Dioxide (21-32) mmol/L Anion Gap (6-13) BUN (6-20) mg/dL Creatinine (0.4-1.0) mg/dL Estimated GFR (MDRD) (>89) Glucose (70-100) mg/dL Calcium (8.5-10.3) mg/dL Phosphorus (2.5-4.6) mg/dL Magnesium (1.7-2.8) mg/dL Total Bilirubin (0.2-1.0) mg/dL AST (10-42) IU/L ALT (10-60) IU/L Alkaline Phosphatase (42-121) IU/L Total Protein (6.7-8.2) g/dL Albumin (3.2-5.5) g/dL Globulin (2.1-4.2) g/dL Albumin/Globulin Ratio (1.0-2.2) Free T4 1.77 H (0.58-1.64) ng/dL Free T3 pg/mL 3.58 (2.5-3.9) pg/mL Nasal Adenovirus (PCR) Nasal B. parapertussis DNA (PCR) Nasal Coronavir 229E PCR Nasal Coronavir HKU1 PCR Nasal Coronavir NL63 PCR Nasal Coronavir OC43 PCR Nasal Enterovir/Rhinovir PCR Nasal Influenza B PCR Nasal Influenza A PCR Nasal Parainfluen 1 PCR Nasal Parainfluen 2 PCR Nasal Parainfluen 3 PCR Nasal Parainfluen 4 PCR Nasal RSV (PCR) Nasal Screen MRSA (PCR) NEGATIVE (NEGATIVE) Nasal B.pertussis DNA PCR Nasal C.pneumoniae (PCR) Emigdio Human Metapneumo PCR Nasal M.pneumoniae (PCR) Nasal SARS-CoV-2 (PCR) 07/06/22 Range/Units 16:00 WBC (4.8-10.8) x10^3/uL RBC (4.20-5.40) 10^6/uL Hgb (12.0-16.0) g/dL Hct (37.0-47.0) % MCV (81.0-99.0) fL MCH (27.0-31.0) pg MCHC (32.0-36.0) g/dL RDW (12.0-15.0) % Plt Count (130-450) 10^3/uL MPV (7.9-10.8) fL Neut # (Auto) (1.5-6.6) 10^3/uL Lymph # (Auto) (1.5-3.5) 10^3/uL [place] # (Auto) (0.0-1.0) 10^3/uL Eos # (Auto) (0.0-0.7) 10^3/uL Baso # (Auto) (0.0-0.1) 10^3/uL Absolute Nucleated RBC x10^3/uL Nucleated RBC % /100WBC PT (9.9-12.6) secs INR (0.8-1.2) VBG pH (7.31-7.41) Ionized Calcium (1.15-1.33) mmol/L Sodium (135-145) mmol/L Potassium (3.5-5.0) mmol/L Chloride (101-111) mmol/L Carbon Dioxide (21-32) mmol/L Anion Gap (6-13) BUN (6-20) mg/dL Creatinine (0.4-1.0) mg/dL Estimated GFR (MDRD) (>89) Glucose (70-100) mg/dL Calcium (8.5-10.3) mg/dL Phosphorus (2.5-4.6) mg/dL Magnesium (1.7-2.8) mg/dL Total Bilirubin (0.2-1.0) mg/dL AST (10-42) IU/L ALT (10-60) IU/L Alkaline Phosphatase (42-121) IU/L Total Protein (6.7-8.2) g/dL Albumin (3.2-5.5) g/dL Globulin (2.1-4.2) g/dL Albumin/Globulin Ratio (1.0-2.2) Free T4 (0.58-1.64) ng/dL Free T3 pg/mL (2.5-3.9) pg/mL Nasal Adenovirus (PCR) NOT DETECTED Nasal B. parapertussis DNA (PCR) NOT DETECTED Nasal Coronavir 229E PCR NOT DETECTED Nasal Coronavir HKU1 PCR NOT DETECTED Nasal Coronavir NL63 PCR NOT DETECTED Nasal Coronavir OC43 PCR NOT DETECTED Nasal Enterovir/Rhinovir PCR NOT DETECTED Nasal Influenza B PCR NOT DETECTED Nasal Influenza A PCR NOT DETECTED Nasal Parainfluen 1 PCR NOT DETECTED Nasal Parainfluen 2 PCR NOT DETECTED Nasal Parainfluen 3 PCR NOT DETECTED Nasal Parainfluen 4 PCR NOT DETECTED Nasal RSV (PCR) NOT DETECTED Nasal Screen MRSA (PCR) (NEGATIVE) Nasal B.pertussis DNA PCR NOT DETECTED Nasal C.pneumoniae (PCR) NOT DETECTED Emigdio Human Metapneumo PCR NOT DETECTED Nasal M.pneumoniae (PCR) NOT DETECTED Nasal SARS-CoV-2 (PCR) NOT DETECTED Assessment/Plan - Problem List (1) Suicide attempt by drug ingestion Impression: According to the ED provider, this was an intentional suicide attempt. She has woken up. She is in ICU on telemetry. She is one-to-one observation. There have been no arrhythmias. She is alert, eating. She will be completing acetylcysteine by 2 PM. LFTs are normal. INR will be checked. Mild hypokalemia. Plan: Plan for social work consult and evaluation of suicidal ideation. She is in ICU electrolyte protocol and will get potassium supplementation (2) Elevated LFTs Conclusion/Plan: Since Tylenol is one of the compounds that she apparently took, Poison control has recommended that we use acetylcysteine scheduled dosing. Repeat CMP this morning this with normal LFTs.
[2022-07-07] MEDS ORDERED: POTASSIUM CHLORIDE 20 MEQ TABLET PO ONE (21:29)
[2022-07-08] MEDS: D5NS W/20 MEQ KCL 1,000 ML IV SCH (02:25)
[2022-07-08 05:20] LABS: CALCIUM, IONIZED 1.19 mmol/L (1.15-1.33); VBG PH 7.449 (7.31-7.41)
[2022-07-08 05:36] LABS: PHOSPHORUS 1.7 mg/dL (2.5-4.6); POTASSIUM 4.1 mmol/L (3.5-5.0)
[2022-07-08] MEDS: PANTOPRAZOLE 40 MG VIAL IVP SCH (06:29)
[2022-07-08] MEDS ORDERED: CYCLOBENZAPRINE 10 MG TABLET PO PRN (09:04)
[2022-07-08] MEDS: NEUTRA-PHOS 250 MG TABLET PO SCH ×2 (09:12→11:29)
[2022-07-08] MEDS: SODIUM CHLORIDE FLUSH 0.9% 10 ML SYRINGE IVP SCH (09:13)
--- NOTE | 2022-07-08 11:33 | XRAY Report ---
PROCEDURE: Lumbar Spine 2 View Bending INDICATIONS: L/S pain TECHNIQUE: AP & Lateral views of the lumbar spine were acquired, followed by flexion & extension sina ding views of the lumbar spine. COMPARISON: None. FINDINGS: Bones: There are 5 lumbar type vertebral bodies. No spondylolisthesis. Minimal spondylosis Limited range of motion is seen with flexion/extension. No dynamic instability. Soft tissues: Overlying bowel gas pattern is normal. No suspicious soft tissue calcifications. IMPRESSION: Minimal spondylotic changes. No spondylolisthesis or dynamic instability. Limited range of motion with flexion/extension. Consider MRI if there is high concern for internal derangement. Reviewed by: Juan Muhammad MD on 07/08/2022 11:31 AM PDT Approved by: Juan Muhammad MD on 07/08/2022 11:31 AM PDT Station ID: [id number]
--- NOTE | 2022-07-08 11:44 | Discharge Plan ---
Discharge Plan Problem Reviewed?: Yes Disposition: Home, Self Care Condition: Fair Diet: Regular Activity Restrictions: Activity as Tolerated Shower Restrictions: No Driving Restrictions: No Health Concerns: You have increasing back pain and was seen in the emergency room for this and sent home with pain medicines and muscle relaxants. You also have a history of mental illness and take medications for possible bipolar disorder. Your pain became so bad and you are worried about the cost of everything became so severe that you attempted to take away your pain by overdosing on all of your medicines.You have been evaluated by social work. A social media community manager, and the [facility], evaluates people for their mental illness to decide if there illness is severe enough to place him in an inpatient facility. You had a good conversation with our social media community manager and she does not feel you are at risk for hurting yourself or hurting somebody else at this time. Plan of Treatment: 1. You will be discharged to home under the care of of your daughter and your sister. 2. Their plan is to send you back to [place] so that you can get the care you need and afford it. 3. We did try and do a backs x-ray while you were here to see what was going on with your lower back, but you felt that you could not stand to bend to do a complete x-ray. Please follow-up with a provider in [place] to make sure that you get full back films to see if there is anything they can do or find for your back pain Care Goals: To be able to control your feelings of worry, sadness. To control your back pain. And to return back home Assessment: Daughter and patient's sister are in the room. They will follow through with care goals. No Smoking: If you smoke, Please STOP! Call for help.
[2022-07-08] MEDS ORDERED: DEXTROSE GEL 37.5 GM TUBE ONE (15:20)
[2022-07-08 15:39] VITALS: BP 134/92
--- NOTE | 2022-07-08 17:02 | DISCHARGE SUMMARY ---
"Discharge Summary Admit Date: 07/06/22 Discharge Date: 07/08/22 Discharging Provider: Karyn Haji MD Primary Care Provider: none Code Status: Attempt Resuscitation Condition at Discharge: Fair Discharge Disposition: 01 Home, Self Care - DIAGNOSES Discharge Diagnoses with Status of Each Condition: 1. Overdose of drug 2. Suicide attempt by drug ingestion 3. Elevated liver function studies 4. Back pain - HPI History of Present Illness: This is obtained from the ED provider, since pt is somnolent: This is a 57-year-old woman who presents after a polydrug overdose, this included Tylenol, hydrocodone, Flexeril, and Lyrica. She presents somnolent, tachycardic, in a c-collar given potential trauma albeit the trauma would have been mild, as she was found lying on the ground near a mattress which was on the floor. Imaging of head and C-spine have ruled out fractures. Poison control recommends treatment with N-acetylcysteine given the elevation in her AST despite a negative serum Tylenol level and this is started. Toxicology screen is positive for tricyclics and opiates. She is being placed in the ICU. - Past Medical History Musculoskeletal: reports: Chronic back pain - CONSULTS | PROCEDURES Procedures: Head CT has no evidence of acute intracranial process. Cervical spine CT has no evidence of acute cervical spine trauma. Lumbar spine x-ray has minimal spondylosis changes. No spondylolisthesis or dynamic instability. Limited range of motion with flexion extension. - HOSPITAL COURSE Hospital Course: The patient was placed in ICU and because of possible Tylenol overdose with her home medication she was put on acetylcysteine. LFTs were transitory elevated. On repeat they were normal. Daughter relates that mom has been having increasing worry about finances. Even though she has been visiting from [place], she does not know how to pay for some of her medical care here. In evaluating her lab test her TSH was suppressed at 0.08. Free T4 was elevated at 1.77. During her stay the patient had fast pressured speech. Was not emotionally labile. Did not have any tachycardia, diaphoresis or diarrhea. She was evaluated by social work for mental health. While she acknowledges that she did try to harm her self because she felt that everyone would be better off without her in the world, she realizes that this was an excessive thought process. Social work determined that she was not a current risk of harm to herself or to someone else. As such they did not feel that she should be seen by the [facility]. She did complain of back pain. We did lumbar films and showed no severe pat hology. Her sister from [place] who has flown in and the plan is for the patient to return to [place] to get further healthcare there. At discharge temperature was 37.4. Heart rate 102. Blood pressure 134/92. Respirations 17. 99% on room air. She is alert, oriented. No diaphoresis. Fast pressured speech at times. She was consistently above 100 during the last 6 hours of her stay. But overnight pulse rate was in the 80s to 90s. Neck is supple. No thyroid tenderness. Lungs were clear to auscultation and percussion. Regular rate and rhythm. Abdomen is soft and nontender. Extremities are without edema. She did not have hyperreflexive nodes. She will need to follow-up with a primary care provider when she returns to [place] for her back pain. She will also need some mental health support for her suicidal ideation. And lastly she will need to be followed up for her thyroid disease. - ALLERGIES Allergies/Adverse Reactions: Allergies Allergy/AdvReac Type Severity Reaction Status Date / Time No Known Drug Allergies Allergy Verified 07/03/22 16:18 - MEDICATIONS Home Medications: Ambulatory Orders Medication Instructions Recorded Confirmed Celecoxib [Celebrex] 200 mg PO DAILY 07/03/22 07/03/22 Cyclobenzaprine [Flexeril] 10 mg PO TID PRN #20 tablet 07/03/22 07/07/22 HYDROcod/ACETAM 5/325 [[place] 5/325] 1 - 2 tablet PO Q6H PRN #14 tablet 07/03/22 07/07/22 - LABS Result Diagrams: 07/07/22 05:08 07/08/22 04:42"
== END 2022-07-08 14:53 | disposition home or self-care (01) ==
LOC: EDUNIT# → ED 15:41 → ICU 18:23
PROVIDERS: ADMIT Internal Medicine; ATTEND Specialist
DX: T39.1X2A Poisoning by 4-Aminophenol derivatives, intentional self-harm, initial encounter (principal); T40.2X2A Poisoning by other opioids, intentional self-harm, initial encounter; T42.6X2A Poisoning by other antiepileptic and sedative-hypnotic drugs, intentional self-harm, initial encounter; T48.1X2A Poisoning by skeletal muscle relaxants [neuromuscular blocking agents], intentional self-harm, initial encounter; R94.5 Abnormal results of liver function studies; M54.50 Low back pain, unspecified; G89.29 Other chronic pain; R79.89 Other specified abnormal findings of blood chemistry; E87.6 Hypokalemia; R40.0 Somnolence; R00.0 Tachycardia, unspecified; R41.0 Disorientation, unspecified; Z20.822 Contact with and (suspected) exposure to COVID-19
CPT/HCPCS: 36415; 70450; 72120; 72125; 80053; 80306; 80307; 80320; 80329; 81003; 82330; 83690; 83735; 84100; 84132; 84439; 84443; 84481; 85025; 85610; 87150; 87633; 93005; 96361; 96365; 96366; 96375; 99285; 99291; A9270; G0378; J0132; J3490; 81001; 87086

== ENCOUNTER 2023-03-26 08:22 | Outpatient (CLI) | payer MEDICAID ==
[2023-03-26 12:02] LABS: BASOPHILS % (AUTO) 0.6 %; EOSINOPHILS # (AUTO) 0.1 10^3/uL (0.0-0.7); EOSINOPHILS % (AUTO) 2.3 %; HCT - HEMATOCRIT 40.6 % (37.0-47.0); LYMPHOCYTES # (AUTO) 1.3 10^3/uL (1.5-3.5); LYMPHOCYTES % (AUTO) 23.8 %; MEAN CORPUSCULAR VOLUME 93.8 fL (81.0-99.0); MEAN PLATELET VOLUME 11.5 fL (7.9-10.8); MONOCYTES # (AUTO) 0.7 10^3/uL (0.0-1.0); MONOCYTES % (AUTO) 12.5 %; NEUTROPHILS # (AUTO) 3.2 10^3/uL (1.5-6.6); NEUTROPHILS % (AUTO) 60.6 %; PLT - PLATELET COUNT 236 10^3/uL (130-450); RED BLOOD COUNT 4.33 10^6/uL (4.20-5.40); RED CELL DISTRIBUTION WIDTH 12.1 % (12.0-15.0); WHITE BLOOD COUNT 5.3 x10^3/uL (4.8-10.8)
[2023-03-26 13:13] LABS: THYROID STIMULATING HORMONE < 0.08 uIU/mL (0.34-5.60)
[2023-03-26 13:15] LABS: FREE T3 4.42 pg/mL (2.5-3.9); FREE T4 (FREE THYROXINE) 1.34 ng/dL (0.58-1.64)
[2023-03-26 13:16] LABS: ALBUMIN 3.9 g/dL (3.2-5.5); ALKALINE PHOSPHATASE 118 IU/L (42-121); ALT ALANINE AMINOTRANSFERASE 72 IU/L (10-60); AST ASPARTATE AMINOTRANSFERASE 42 IU/L (10-42); BILIRUBIN,TOTAL 0.5 mg/dL (0.2-1.0); BUN - BLOOD UREA NITROGEN 15 mg/dL (6-20); CALCIUM 9.5 mg/dL (8.5-10.3); CARBON DIOXIDE - CO2 30 mmol/L (21-32); CHLORIDE 101 mmol/L (101-111); CREATININE 0.7 mg/dL (0.4-1.0); GFR - MDRD 87 (>89); GLUCOSE 99 mg/dL (70-100); LIPASE 34 U/L (22-51); SODIUM 141 mmol/L (135-145); TOTAL PROTEIN 7.9 g/dL (6.7-8.2)
[2023-03-26 13:31] LABS: CRP - C-REACTIVE PROTEIN < 1.0 mg/dL (0-1.0)
== END 2023-03-26 08:23 | disposition home or self-care (01) ==
LOC: LAB.N 08:22
PROVIDERS: ATTEND Registered Nurse
DX: R14.0 Abdominal distension (gaseous) (principal); J34.89 Other specified disorders of nose and nasal sinuses; R19.7 Diarrhea, unspecified; R14.1 Gas pain; E03.9 Hypothyroidism, unspecified
CPT/HCPCS: 36415; 80053; 83690; 84439; 84443; 84481; 85025; 86140

== ENCOUNTER 2023-05-11 09:15 | Outpatient (CLI) | payer MEDICAID ==
[2023-05-11 12:42] LABS: ALBUMIN 4.2 g/dL (3.2-5.5); ALBUMIN/GLOBULIN RATIO 1.2 (1.0-2.2); BILIRUBIN,TOTAL 0.5 mg/dL (0.2-1.0); CALCIUM 9.8 mg/dL (8.5-10.3); CREATININE 0.7 mg/dL (0.4-1.0); POTASSIUM 4.2 mmol/L (3.5-5.0); TOTAL PROTEIN 7.8 g/dL (6.7-8.2)
[2023-05-11 13:37] LABS: THYROID STIMULATING HORMONE < 0.08 uIU/mL (0.34-5.60)
[2023-05-11 13:39] LABS: FREE T3 4.32 pg/mL (2.5-3.9); FREE T4 (FREE THYROXINE) 1.59 ng/dL (0.58-1.64)
== END 2023-05-11 09:16 | disposition home or self-care (01) ==
LOC: LAB.N 09:15
PROVIDERS: ATTEND Registered Nurse
DX: E03.9 Hypothyroidism, unspecified (principal); R94.5 Abnormal results of liver function studies; R19.7 Diarrhea, unspecified; R14.1 Gas pain
CPT/HCPCS: 36415; 80053; 84439; 84443; 84481